=== PATIENT | male | born 1975 | race Caucasian/White ===

== ENCOUNTER → 2016-08-30 | Outpatient (CLI) | payer OTHER, BC ==
[~2016-08-30] MED LIST: FISH OIL1 IU PO; MULTIPLE VITAMI1 CAP PO; PEPCID 20MG TAB20 MG PO; PRILOSEC 20MG20 MG PO; ZANTAC 300300 MG PO; ZESTRIL 10MG10 MG PO; ZESTRIL10 MG PO
== END ==
LOC: COL.RAD 07:17
DX: H54.61 Unqualified visual loss, right eye, normal vision left eye (principal); R41.89 Other symptoms and signs involving cognitive functions and awareness; G43.109 Migraine with aura, not intractable, without status migrainosus; J34.1 Cyst and mucocele of nose and nasal sinus

== ENCOUNTER 2019-04-27 07:00 | Day surgery (SDC) | payer OTHER ==
[~2019-04-27] VITALS: Ht 180.3 cm; Wt 82.0 kg
[~2019-04-27 07:00] MED LIST changes: -FISH OIL1 IU PO; +PRINIVIL10 MG PO; -ZANTAC 300300 MG PO
[2019-04-27 07:35] VITALS: BP 118/84; PULSE 60; TEMP 97.9
[2019-04-27 08:30] VITALS: BP 109/71; PULSE 70; TEMP 97.9
--- NOTE | 2019-04-27 08:30 | NUR ---
Patient arrives back to [facility] drowsy. Ambulates from cart to chair with standby assist and without any complications. Patient monitor applied, vitals stable. Patient's spouse at bedside.
--- NOTE | 2019-04-27 08:35 | NUR ---
Dr Milner into see patient and patient's spouse to go over procedure results.
--- NOTE | 2019-04-27 08:40 | NUR ---
Patient given water and muffin at this time. Vitals stable.
[2019-04-27 08:45] VITALS: BP 124/77; PULSE 80
[2019-04-27 09:00] VITALS: BP 117/76; PULSE 80
--- NOTE | 2019-04-27 09:00 | NUR ---
Patient reports he is feeling well, denies pain or nausea. Vitals stable.
--- NOTE | 2019-04-27 09:10 | NUR ---
Dismissal instructions gone over with patient and patient's spouse. Both verbalize understanding and all questions answered.
--- NOTE | 2019-04-27 09:13 | NUR ---
Dr Milner contacted at this time per patient request to ask for Carafate prescription. Dr Milner reports he will send Carafate prescription electronically to patient's pharmacy for patient.
--- NOTE | 2019-04-27 09:15 | NUR ---
Patient discharged to patient enterance via ambulation with spouse. Patient and spouse leave thanking staff for services.
== END 2019-04-27 09:15 | disposition home or self-care (01) ==
LOC: SDCO 07:00
DX: K22.70 Barrett's esophagus without dysplasia (principal); K44.9 Diaphragmatic hernia without obstruction or gangrene; K29.30 Chronic superficial gastritis without bleeding; Z98.890 Other specified postprocedural states; I10 Essential (primary) hypertension
CPT/HCPCS: J2250; J3010; J7030

== ENCOUNTER → 2020-12-30 | Outpatient (REF) | LOC: COL.LAB 11:39 | DX: Z20.822 Contact with and (suspected) exposure to COVID-19 (principal) ==

== ENCOUNTER 2021-08-28 06:34 | Day surgery (SDC) | payer OTHER ==
[~2021-08-28] VITALS: Ht 180.3 cm; Wt 88.1 kg
[2021-08-28 07:00] VITALS: BP 123/83; PULSE 64; TEMP 97
[2021-08-28 07:50] VITALS: BP 103/75; PULSE 75; TEMP 97
--- NOTE | 2021-08-28 07:50 | NUR ---
Written report obtained from ANGIE Mora.
[2021-08-28 08:05] VITALS: BP 104/74; PULSE 64
--- NOTE | 2021-08-28 08:05 | NUR ---
The patient is alert and oriented x3. Denies nausea. No vomiting. Vitals obtained and are WNL. The patient has finished his muffin and juice. He states his ride should be arriving from admissions soon. Call moore within reach.
[2021-08-28 08:20] VITALS: BP 111/68; PULSE 64
--- NOTE | 2021-08-28 08:20 | NUR ---
Vitals obtained. The patient expressed desire to be discharged. IV was discontinued. Catheter tip intact. Pressure bandage applied. No redness or swelling noted. DC instructions and educational material reviewed with the patient, who verbalized understanding and denied questions. DC paperwork signed. The patient is currently changing.
--- NOTE | 2021-08-28 08:25 | NUR ---
The patient was brought into his bay. The patient was then escorted [facility] via wheelchair [facility] where he [facility] transferred into the care of his , who is present to drive.
== END 2021-08-28 08:30 | disposition home or self-care (01) ==
LOC: SDCO 06:34
DX: K22.70 Barrett's esophagus without dysplasia (principal); K29.30 Chronic superficial gastritis without bleeding; K44.9 Diaphragmatic hernia without obstruction or gangrene; K21.9 Gastro-esophageal reflux disease without esophagitis; K22.9 Disease of esophagus, unspecified; Z79.899 Other long term (current) drug therapy; Z98.890 Other specified postprocedural states
CPT/HCPCS: J2704; J7030